=== PATIENT | male | born 1945 | race Caucasian/White ===

== ENCOUNTER 2022-05-19 15:42 | Emergency (ER) | payer OTHER ==
[~2022-05-19] VITALS: Ht 182.9 cm; Wt 76.0 kg
[2022-05-19 17:03] VITALS: BP 137/72
[2022-05-19] MEDS ORDERED: cefTRIAXone SOD 1,000 MG VL IM ONE (17:30)
[2022-05-19] MEDS ORDERED: SULF800T7 PO (17:32)
[2022-05-19] MEDS ORDERED: ACET-1158 PO (17:32)
== END 2022-05-19 18:42 | disposition home or self-care (01) ==
LOC: ER 15:42
DX: L02.811 Cutaneous abscess of head [any part, except face] (principal)
CPT/HCPCS: 10060; 96372; 99283; J0696